=== PATIENT | female | born 1985 | race Caucasian/White ===

== ENCOUNTER 2017-01-15 15:24 | Emergency (ER) | payer OTHER ==
[~2017-01-15] VITALS: Ht 162.6 cm; Wt 50.5 kg
[~2017-01-15 15:24] MED LIST: AMOXICILLIN500 MG PO; CLINDAMYCIN HC300 MG PO; FLEXERIL10 MG PO; MICRONOR0.35 MG PO; MOTRIN600 MG PO; Motrin PO; NAPROSYN-EC500 MG PO; NOHOMEMEDS; SYNTHROID25 MCG PO
[2017-01-15] MEDS ORDERED: CLINDAMYCIN HC150 MG PO (16:39)
[2017-01-15 16:49] VITALS: BP 121/36
== END 2017-01-15 16:51 | disposition home or self-care (01) ==
LOC: EME 15:24
DX: K04.7 Periapical abscess without sinus (principal); K08.89 Other specified disorders of teeth and supporting structures; F17.200 Nicotine dependence, unspecified, uncomplicated
CPT/HCPCS: 99281; 99283

== ENCOUNTER 2017-09-18 13:32 | Emergency (ER) | payer OTHER ==
[~2017-09-18] VITALS: Ht 162.6 cm; Wt 55.1 kg
[~2017-09-18 13:32] MED LIST changes: +CLINDAMYCIN HC150 MG PO
[2017-09-18] MEDS ORDERED: MOTRIN800 MG PO (14:38)
[2017-09-18] MEDS ORDERED: PEN-VEE K,VEET500 MG PO (14:38)
[2017-09-18 16:19] VITALS: BP 110/72
== END 2017-09-18 16:21 | disposition home or self-care (01) ==
LOC: EME 13:32
DX: K04.7 Periapical abscess without sinus (principal); F17.200 Nicotine dependence, unspecified, uncomplicated
CPT/HCPCS: 99281; 99283

== ENCOUNTER 2017-12-29 09:32 | Emergency (ER) | payer OTHER ==
[~2017-12-29] VITALS: Ht 162.6 cm; Wt 54.0 kg
[~2017-12-29 09:32] MED LIST changes: +MOTRIN800 MG PO; +PEN-VEE K,VEET500 MG PO
[2017-12-29 10:57] LABS: HEMATOCRIT 24.2 % (36.0-46.0); HEMOGLOBIN 7.7 G/DL (11.9-15.5); MCH 23.1 PG (29.0-34.0); MCHC 31.8 G/DL (30.0-36.0); MCV 72.7 FL (83-99); PLATELET COUNT 171 K/uL (156-360); RBC DIS.WIDTH-CV 19.6 % (11.8-14.6); RBC DIS.WIDTH-SD 50.2 % (39-53); RED BLOOD COUNT 3.33 M/uL (3.80-5.20); WHITE BLOOD COUNT 12.6 K/uL (4.1-10.2)
[2017-12-29 11:03] LABS: CHLORIDE 104 mEq/L (99-109); SODIUM 137 mEq/L (136-147)
[2017-12-29 11:05] LABS: GLUCOSE 138 mg/dL (70-99)
[2017-12-29 11:09] LABS: CREATININE 1.2 mg/dL (0.6-1.3); GFR ESTIMATE (CALCULATED) 55 mL/min/
[2017-12-29 11:10] LABS: UREA NITROGEN (BUN) 11 mg/dL (9-23)
[2017-12-29] MEDS ORDERED: CLEOCIN300 MG PO (13:39)
[2017-12-29 14:11] VITALS: BP 120/79
== END 2017-12-29 14:14 | disposition home or self-care (01) ==
LOC: EME 09:32
PROVIDERS: Emergency Medicine
DX: K04.7 Periapical abscess without sinus (principal); D64.9 Anemia, unspecified; F17.200 Nicotine dependence, unspecified, uncomplicated; F11.10 Opioid abuse, uncomplicated
CPT/HCPCS: 80048; 85027